=== PATIENT | female | born 1960 | race Caucasian/White ===

== ENCOUNTER 2018-10-21 17:01 | Outpatient (CLI) | payer OTHER ==
--- NOTE | 2018-10-21 19:44 | RAD ---
CERVICAL SPINE THREE VIEWS: 10/21/2018 FINDINGS: There is loss of the normal cervical lordosis, which may be due to muscle spasm. No fracture or disl ocation is seen. Disk space narrowing is present at C4-C5 and at C5-C6. It may be present to a less er extent at C6-C7. Small osteophytes are seen at several levels. The soft tissues are normal in th ickness, and the C1 to dens distance is normal. IMPRESSION: Cervical spondylosis. POS: HOME
== END 2018-10-21 17:02 | disposition home or self-care (01) ==
LOC: BURRAD 17:01
PROVIDERS: ATTEND Physician Assistant
DX: M54.2 Cervicalgia (principal); R20.2 Paresthesia of skin; R29.898 Other symptoms and signs involving the musculoskeletal system; M47.812 Spondylosis without myelopathy or radiculopathy, cervical region
CPT/HCPCS: 72040